=== PATIENT | male | born 1990 | race Caucasian/White ===

== ENCOUNTER 2023-04-29 20:17 | Emergency (ER) | payer OTHER ==
[~2023-04-29] VITALS: Ht 167.6 cm; Wt 70.3 kg
[2023-04-29 20:33] VITALS: BP 123/85; PULSE 89; RESP 18; TEMP 98.1; O2SAT 99
[2023-04-29 22:54] LABS: APPEARANCE,URINE CLEAR (CLEAR); BILIRUBIN,URINE NEGATIVE (NEGATIVE); BLOOD, URINE NEGATIVE (NEGATIVE); COLOR,URINE YELLOW (YELLOW); LEUKOCYTE ESTERASE ,URINE NEGATIVE (NEGATIVE); NITRITE, URINE NEGATIVE (NEGATIVE); PH,URINE 6.5 (5.0-9.0); PROTEIN,URINE NEGATIVE (NEGATIVE); UGLUCOSE NEGATIVE (NEGATIVE)
[2023-04-30] VITALS: BP 123/85; PULSE 89; RESP 18; TEMP 98.1; O2SAT 99
== END 2023-04-30 | disposition home or self-care (01) ==
LOC: MED 20:17
DX: L72.0 Epidermal cyst (principal); N44.2 Benign cyst of testis
CPT/HCPCS: 76870; 81003; 87491; 99284; Q0092